=== PATIENT | female | born 1965 | race Caucasian/White ===

== ENCOUNTER 2016-04-18 12:44 | Emergency (ER) | payer OTHER ==
[~2016-04-18] VITALS: Ht 160 cm; Wt 75.9 kg
[~2016-04-18 12:44] MED LIST: AMITRIPTYLINE H10 M1 PO; AMITRIPTYLINE H25 M1 PO; AMOXICILLIN 50500 MG PO; ASPIRIN E.C. 8181 MG PO; BRILINTA90 MG PO; BUSPIRONE; CARDIZEM 30MG T30 MG PO; CARDIZEM CD 12120 MG PO; CARTIA XT120 MG PO; CEFTIN500 MG PO; CELEXA; CELEXA 20MG20 MG/TAB PO; CELEXA10 MG PO; CELEXA40 MG PO; CEPHALEXIN500 M1 PO; CLARITIN; CLEOCIN HCL300 MG PO; CLINDAMYCIN HC150 MG PO; CRESTOR 10MG10 MG PO; CYMBALTA 20MG20 MG PO; DOXYCYCLINE 10100 MG PO; DRISTAN NS; FLEXERIL; FLUOXETINE; HYDROCODONE/APAP; INDOCET; KLONOPIN 1MG1 MG PO; LORAZEPAM0.5 MG PO; LORTAB 5/500 501 TAB PO; MACROBID 1100 MG/CAP PO; MIDOL; NITROQUICK0.4 MG SL; NITROSTAT0.4 MG/TAB SL; NO HOME MEDICATIONS; NORCO 325 MG-51 TAB PO; NOT TAKING MEDS; OMNICEF 300MG300 MG PO; PERCOCET 325 MG1 TA2 PO; PERCOCET 650 MG1 TAB PO; PHENERGAN 25 TA25 MG PO; PHENTERMINE; PLAVIX 75MG TAB75 MG PO; PRILOSEC10 MG; PRINIVIL10 MG PO; PYRIDIUM200 M1 PO; SYMBICORT1 AE2 IH; SYNTHROID0.05 MG/TA PO; TRAZODONE150 MG PO; TYLENOL 500MG500 MG PO; VENTOLIN0.09 MG IH; WELLBUTRIN PO; ZESTRIL 20MG TA20 MG PO; ZITHROMAX Z PA250 MG PO; ZOCOR 40MG40 MG PO; ZOLOFT25 MG PO
[2016-04-18 12:47] VITALS: TEMP 97.5
[2016-04-18 13:38] LABS: BASO # 0.1 (0.0-0.2); BASO % 0.7 % (0.0-2.0); EOS # 0.4 (0.0-0.7); EOS % 4.1 % (0-4.0); GRAN % 58.5 % (42.2-75.2); HEMOGLOBIN 15.1 g/dl (12.5-16.0); LYMPH # 2.6 (1.2-3.4); LYMPH % 30.8 % (20.0-51.0); MEAN CELL VOLUME 92 fl (80.0-100.0); MEAN CORPUSCULAR HEMOGLOBIN 32 pg (27.0-31.0); MEAN CORPUSCULAR HGB CONC 34 g/dl (33.0-37.0); MEAN PLATELET VOLUME 10.4 fl (7.4-10.4); MONO # 0.5 (0.1-0.6); MONO % 5.7 % (1.7-9.3); PLATELET COUNT 296 K/mm3 (130-400); RED BLOOD COUNT 4.78 M/mm3 (4.10-5.30); WHITE BLOOD COUNT 8.6 K/mm3 (4.8-10.8)
[2016-04-18] MEDS ORDERED: ZESTRIL 5MG5 MG PO (13:39)
[2016-04-18 14:04] LABS: ALANINE AMINOTRANSFERASE 26 U/L (9-52); ALBUMIN 3.9 gm/dL (3.5-5.0); ALKALINE PHOSPHATASE 95 U/L (50-136); ANION GAP 10 mmol/L (7-16); BILIRUBIN,TOTAL 0.5 mg/dL (0.0-1.0); BLOOD UREA NITROGEN 3 mg/dL (7-17); CALCIUM 8.9 mg/dL (8.4-10.2); CARBON DIOXIDE 25 mmol/L (22-30); CHLORIDE 102 mmol/L (98-107); GLUCOSE 98 mg/dL (74-106); POTASSIUM 3.3 mmol/L (3.4-5.0); SODIUM 137 mmol/L (137-145); TOTAL PROTEIN 7.1 gm/dL (6.4-8.2)
[2016-04-18 14:10] LABS: C-REACTIVE PROTEIN < 0.5 mg/dL (0.0-0.9)
[2016-04-18 16:45] VITALS: BP 115/79; PULSE 83
== END 2016-04-18 16:51 | disposition home or self-care (01) ==
LOC: COL.ER 12:44
PROVIDERS: Emergency Medicine
DX: R51 Headache (principal); I25.10 Atherosclerotic heart disease of native coronary artery without angina pectoris; I10 Essential (primary) hypertension; F17.210 Nicotine dependence, cigarettes, uncomplicated
CPT/HCPCS: J1170; J2270; J2405; J7030; Q9967

== ENCOUNTER 2016-08-21 16:43 | Observation (INO) | payer OTHER ==
[~2016-08-21] VITALS: Ht 162.6 cm; Wt 79.7 kg
[~2016-08-21 16:43] MED LIST changes: +ZESTRIL 5MG5 MG PO
[2016-08-21 17:21] LABS: BASO % 0.4 % (0.0-2.0); EOS # 0.3 (0.0-0.7); GRAN # 5.9 (1.4-6.5); GRAN % 64.2 % (42.2-75.2); HEMATOCRIT 42.8 % (37.0-47.0); HEMOGLOBIN 14.3 g/dl (12.5-16.0); LYMPH # 2.5 (1.2-3.4); MEAN CELL VOLUME 92 fl (80.0-100.0); MEAN CORPUSCULAR HEMOGLOBIN 31 pg (27.0-31.0); MEAN CORPUSCULAR HGB CONC 33 g/dl (33.0-37.0); MEAN PLATELET VOLUME 10.5 fl (7.4-10.4); MONO # 0.5 (0.1-0.6); MONO % 5.2 % (1.7-9.3); PLATELET COUNT 275 K/mm3 (130-400); RED BLOOD COUNT 4.63 M/mm3 (4.10-5.30); REDCELL DISTRIBUTION WIDTH-CV 13.6 % (11.5-14.5); WHITE BLOOD COUNT 9.2 K/mm3 (4.8-10.8)
[2016-08-21 17:32] LABS: ADJUSTED CALCIUM 8.9 mg/dL (8.4-10.2); ALANINE AMINOTRANSFERASE 19 U/L (9-52); ALBUMIN 3.4 gm/dL (3.5-5.0); ALKALINE PHOSPHATASE 63 U/L (50-136); ANION GAP 9 mmol/L (7-16); BILIRUBIN,TOTAL 0.8 mg/dL (0.0-1.0); BLOOD UREA NITROGEN 10 mg/dL (7-17); CALCIUM 8.4 mg/dL (8.4-10.2); CARBON DIOXIDE 22 mmol/L (22-30); CHLORIDE 104 mmol/L (98-107); CREATININE, serum 0.72 mg/dL (0.52-1.25); GLUCOSE 120 mg/dL (74-106); LIPASE 45 U/L (23-300); MAGNESIUM 1.4 mg/dL (1.6-2.3); PHOSPHOROUS 2.9 mg/dL (2.5-4.5); POTASSIUM 3.1 mmol/L (3.4-5.0); SODIUM 135 mmol/L (137-145); TOTAL PROTEIN 6.2 gm/dL (6.4-8.2)
[2016-08-21 17:41] LABS: B-TYPE NATRIURETIC PEPTIDE 64 pg/mL (0-125)
[2016-08-21 18:24] LABS: TROPONIN-I < 0.012 ng/mL (0.000-0.034)
[2016-08-21 18:43] LABS: AMPHETAMINE URINE POSITIVE; BARBITURATES URINE NEGATIVE; BENZODIAZEPINES URINE NEGATIVE; BUPRENORPHINE URINE NEGATIVE; METHADONE URINE NEGATIVE; OPIATES URINE NEGATIVE; OXYCODONE URINE NEGATIVE; PHENCYCLIDINE URINE NEGATIVE; PROPOXYPHENE URINE NEGATIVE; THC CANNABINOIDS URINE NEGATIVE
[2016-08-21 20:08] VITALS: BP 102/60; PULSE 80; TEMP 97.6
[2016-08-21] MEDS ORDERED: CELEXA 20MG20 MG/TAB PO (22:14)
[2016-08-21] MEDS ORDERED: XANAX .25M0.25 MG/TA PO (22:14)
[2016-08-21] MEDS ORDERED: PERCOCET 325 MG1 TA2 PO (22:15)
[2016-08-21] MEDS ORDERED: ASPIRIN 81M81 MG/TA2 PO (22:15)
[2016-08-21] MEDS ORDERED: ASPIRIN 32325 MG/TAB PO (22:16)
[2016-08-21 23:31] VITALS: BP 126/77; PULSE 89; TEMP 98.1
[2016-08-22] VITALS (9 sets, daily range): BP systolic 116–144; BP diastolic 44–96; PULSE 59–100; TEMP 97.3–98.7
[2016-08-22 07:37] LABS: PROTHROMBIN TIME 10.7 SECONDS (9.7-12.8)
[2016-08-22 07:54] LABS: TROPONIN-I < 0.012 ng/mL (0.000-0.034)
[2016-08-22 08:01] LABS: ANION GAP 7 mmol/L (7-16); BLOOD UREA NITROGEN 11 mg/dL (7-17); CARBON DIOXIDE 22 mmol/L (22-30); CHLORIDE 107 mmol/L (98-107); CREATININE, serum 0.72 mg/dL (0.52-1.25); GLUCOSE 91 mg/dL (74-106); MAGNESIUM 1.6 mg/dL (1.6-2.3); POTASSIUM 3.9 mmol/L (3.4-5.0); SODIUM 136 mmol/L (137-145)
[2016-08-22] MEDS ORDERED: CELEXA 20MG20 MG/TAB PO (16:41)
[2016-08-22] MEDS ORDERED: PRAVACHOL 40MG40 MG PO (16:41)
== END 2016-08-22 17:42 | disposition home or self-care (01) ==
LOC: COL.ER 16:43 → MEDICAL 19:13
PROVIDERS: Emergency Medicine; Internal Medicine
DX: F15.10 Other stimulant abuse, uncomplicated (principal); R07.9 Chest pain, unspecified; M54.2 Cervicalgia; F41.9 Anxiety disorder, unspecified; Z91.14 Patient's other noncompliance with medication regimen; I25.10 Atherosclerotic heart disease of native coronary artery without angina pectoris; Z95.5 Presence of coronary angioplasty implant and graft; I67.1 Cerebral aneurysm, nonruptured; I10 Essential (primary) hypertension; F32.9 Major depressive disorder, single episode, unspecified; F17.210 Nicotine dependence, cigarettes, uncomplicated; E78.5 Hyperlipidemia, unspecified; E03.9 Hypothyroidism, unspecified; F31.9 Bipolar disorder, unspecified; G89.29 Other chronic pain
CPT/HCPCS: A9502; G0378; J1650; J2270; J2785; J7030

== ENCOUNTER 2016-11-24 13:51 | Emergency (ER) | payer OTHER ==
[~2016-11-24] VITALS: Ht 162.6 cm; Wt 79.4 kg
[~2016-11-24 13:51] MED LIST changes: +ASPIRIN 32325 MG/TAB PO; +ASPIRIN 81M81 MG/TA2 PO; +PRAVACHOL 40MG40 MG PO; +XANAX .25M0.25 MG/TA PO
[2016-11-24 13:58] VITALS: BP 135/74; PULSE 93; TEMP 98.9
[2016-11-24] MEDS ORDERED: BRILINTA90 MG PO (14:03)
[2016-11-24] MEDS ORDERED: NORCO 325 MG-51 TAB PO (16:02)
[2016-11-24] MEDS ORDERED: PEN-VEE K500 MG PO (16:02)
== END 2016-11-24 16:15 | disposition home or self-care (01) ==
LOC: COL.ER 13:51
DX: K08.89 Other specified disorders of teeth and supporting structures (principal); I10 Essential (primary) hypertension; I25.2 Old myocardial infarction; J45.909 Unspecified asthma, uncomplicated; F31.9 Bipolar disorder, unspecified; F17.210 Nicotine dependence, cigarettes, uncomplicated; Z79.82 Long term (current) use of aspirin

== ENCOUNTER 2017-04-18 18:46 | Emergency (ER) | payer SELFPAY ==
[~2017-04-18] VITALS: Ht 162.6 cm; Wt 79.1 kg
[~2017-04-18 18:46] MED LIST changes: +PEN-VEE K500 MG PO
[2017-04-18 18:52] VITALS: BP 156/83; TEMP 97.5
[2017-04-18] MEDS ORDERED: AMOXICILLIN 50500 MG PO (19:29)
[2017-04-18 20:11] VITALS: PULSE 78
== END 2017-04-18 20:12 | disposition home or self-care (01) ==
LOC: COL.ER 18:46
DX: K02.9 Dental caries, unspecified (principal); I10 Essential (primary) hypertension; G43.909 Migraine, unspecified, not intractable, without status migrainosus; J45.909 Unspecified asthma, uncomplicated; F31.9 Bipolar disorder, unspecified; F17.210 Nicotine dependence, cigarettes, uncomplicated; Z88.1 Allergy status to other antibiotic agents

== ENCOUNTER → 2017-04-23 | Emergency (ER) | payer SELFPAY ==
[~2017-04-23] VITALS: Ht 162.6 cm; Wt 81.4 kg
[2017-04-23 09:21] VITALS: BP 161/79; PULSE 94; TEMP 98.2
== END ==
LOC: COL.ER 09:18
DX: R69 Illness, unspecified (principal)

== ENCOUNTER 2017-05-08 18:21 | Emergency (ER) | payer SELFPAY ==
[~2017-05-08] VITALS: Ht 162.6 cm; Wt 81.4 kg
[2017-05-08 18:29] VITALS: TEMP 97.9
[2017-05-08 19:54] LABS: ALANINE AMINOTRANSFERASE 36 U/L (9-52); ALBUMIN 4.1 gm/dL (3.5-5.0); ALKALINE PHOSPHATASE 74 U/L (50-136); ANION GAP 12 mmol/L (7-16); AST,SGOT 23 U/L (15-37); BILIRUBIN,TOTAL 0.6 mg/dL (0.0-1.0); BLOOD UREA NITROGEN 10 mg/dL (7-17); CARBON DIOXIDE 23 mmol/L (22-30); CHLORIDE 107 mmol/L (98-107); CREATININE, serum 0.81 mg/dL (0.52-1.25); GLUCOSE 127 mg/dL (74-106); POTASSIUM 3.3 mmol/L (3.4-5.0); SODIUM 141 mmol/L (137-145)
[2017-05-08 19:55] LABS: ACETAMINOPHEN < 10 ug/mL (10-30); ALCOHOL(ethanol),MEDICAL < 10 mg/dL; SALICYLATE < 1.0 mg/dL
[2017-05-08 20:01] LABS: BASO # 0.1 (0.0-0.2); BASO % 0.5 % (0.0-2.0); EOS # 0.2 (0.0-0.7); EOS % 1.9 % (0-4.0); GRAN # 7.5 (1.4-6.5); GRAN % 69.3 % (42.2-75.2); HEMATOCRIT 40.9 % (37.0-47.0); LYMPH # 2.3 (1.2-3.4); LYMPH % 20.9 % (20.0-51.0); MEAN CELL VOLUME 92 fl (80.0-100.0); MEAN CORPUSCULAR HEMOGLOBIN 32 pg (27.0-31.0); MEAN CORPUSCULAR HGB CONC 34 g/dl (33.0-37.0); MEAN PLATELET VOLUME 10.8 fl (7.4-10.4); MONO # 0.8 (0.1-0.6); PLATELET COUNT 305 K/mm3 (130-400); RED BLOOD COUNT 4.44 M/mm3 (4.10-5.30); REDCELL DISTRIBUTION WIDTH-CV 14.6 % (11.5-14.5)
[2017-05-08 20:23] LABS: COLLECTION METHOD CLEAN CATCH
[2017-05-08 20:31] LABS: MUCOUS Present /lpf; PH 5 (5-8); SQUAMOUS EPITHELIAL 0-2 /hpf; URINE APPEARANCE Hazy; URINE BACTERIA None Seen /hpf; URINE BILIRUBIN Negative (NEGATIVE); URINE BLOOD 1+ (NEGATIVE); URINE COLOR Yellow; URINE GLUCOSE Negative (NEGATIVE); URINE KETONE Negative (NEGATIVE); URINE LEUKOCYTE ESTERASE Negative (NEGATIVE); URINE NITRATE Negative (NEGATIVE); URINE PROTEIN(semi-quant) 1+ (NEGATIVE); URINE UROBILINOGEN Negative (NEGATIVE)
[2017-05-08 20:38] LABS: TRICYCLIC ANTIDEPRESS URINE NEGATIVE
[2017-05-08 21:50] VITALS: BP 109/64
[2017-05-08 23:40] VITALS: PULSE 90
== END 2017-05-08 23:42 | disposition home or self-care (01) ==
LOC: COL.ER 18:21
PROVIDERS: Family Medicine
DX: F41.9 Anxiety disorder, unspecified (principal); F32.9 Major depressive disorder, single episode, unspecified; Z23 Encounter for immunization

== ENCOUNTER 2017-06-19 18:16 | Emergency (ER) | payer SELFPAY ==
[2017-06-19 18:21] VITALS: BP 126/84; TEMP 97.7
[2017-06-19 18:53] LABS: BASO # 0.1 (0.0-0.2); BASO % 0.6 % (0.0-2.0); EOS # 0.4 (0.0-0.7); GRAN # 5.9 (1.4-6.5); GRAN % 58.6 % (42.2-75.2); HEMATOCRIT 46.1 % (37.0-47.0); HEMOGLOBIN 15.6 g/dl (12.5-16.0); LYMPH # 2.9 (1.2-3.4); LYMPH % 28.7 % (20.0-51.0); MEAN CELL VOLUME 91 fl (80.0-100.0); MEAN CORPUSCULAR HEMOGLOBIN 31 pg (27.0-31.0); MEAN CORPUSCULAR HGB CONC 34 g/dl (33.0-37.0); MEAN PLATELET VOLUME 10.9 fl (7.4-10.4); MONO # 0.8 (0.1-0.6); MONO % 7.8 % (1.7-9.3); PLATELET COUNT 319 K/mm3 (130-400); RED BLOOD COUNT 5.08 M/mm3 (4.10-5.30); REDCELL DISTRIBUTION WIDTH-CV 13.7 % (11.5-14.5)
[2017-06-19] MEDS ORDERED: WELLBUTRIN SR150 M1 PO (18:57)
[2017-06-19] MEDS ORDERED: CYMBALTA 20MG20 MG PO (18:57)
[2017-06-19 19:06] LABS: BILIRUBIN,TOTAL 0.2 mg/dL (0.0-1.0); C-REACTIVE PROTEIN 0.6 mg/dL (0.0-0.9); CALCIUM 9.7 mg/dL (8.4-10.2); CREATININE, serum 0.88 mg/dL (0.52-1.25); POTASSIUM 4.2 mmol/L (3.4-5.0); TOTAL PROTEIN 7.2 gm/dL (6.4-8.2)
[2017-06-19 19:21] LABS: COLLECTION METHOD CLEAN CATCH
[2017-06-19 19:26] LABS: PH 5 (5-8); SQUAMOUS EPITHELIAL 0-2 /hpf; URINE APPEARANCE Clear; URINE BACTERIA None Seen /hpf; URINE BILIRUBIN Negative (NEGATIVE); URINE BLOOD Negative (NEGATIVE); URINE COLOR Yellow; URINE GLUCOSE Negative (NEGATIVE); URINE KETONE Negative (NEGATIVE); URINE LEUKOCYTE ESTERASE Negative (NEGATIVE); URINE NITRATE Negative (NEGATIVE); URINE PROTEIN(semi-quant) Negative (NEGATIVE); URINE RBC 0-2 /hpf; URINE UROBILINOGEN Negative (NEGATIVE)
[2017-06-19] MEDS ORDERED: LEVOXYL0.1 MG PO ×3 (19:26→20:07)
[2017-06-19] MEDS ORDERED: FLEXERIL 1010 MG/TAB PO (19:29)
[2017-06-19 19:34] LABS: THYROID STIMULATING HORMONE 2.39 uIU/mL (0.465-4.680)
[2017-06-19 19:37] LABS: TRICYCLIC ANTIDEPRESS URINE NEGATIVE
[2017-06-19 19:58] VITALS: PULSE 80
== END 2017-06-19 19:57 | disposition home or self-care (01) ==
LOC: COL.ER 18:16
PROVIDERS: Family Medicine
DX: G89.29 Other chronic pain (principal); M54.5 Low back pain; E03.9 Hypothyroidism, unspecified; I10 Essential (primary) hypertension; F32.9 Major depressive disorder, single episode, unspecified; Z86.79 Personal history of other diseases of the circulatory system; Z98.890 Other specified postprocedural states
CPT/HCPCS: J2405; J7030

== ENCOUNTER 2018-02-18 09:30 | Emergency (ER) | payer MEDICAID ==
[~2018-02-18] VITALS: Ht 162.6 cm; Wt 74.9 kg
[~2018-02-18 09:30] MED LIST changes: +FLEXERIL 1010 MG/TAB PO; +LEVOXYL0.1 MG PO; +WELLBUTRIN SR150 M1 PO
[2018-02-18 09:36] VITALS: BP 138/98; TEMP 96.7
[2018-02-18] MEDS ORDERED: FLEXERIL 1010 MG/TAB PO (10:56)
[2018-02-18] MEDS ORDERED: NORCO 325 MG-51 TAB PO (10:56)
[2018-02-18 11:03] VITALS: PULSE 90
== END 2018-02-18 11:03 | disposition home or self-care (01) ==
LOC: COL.ER 09:30
DX: M54.31 Sciatica, right side (principal); F17.210 Nicotine dependence, cigarettes, uncomplicated; F32.9 Major depressive disorder, single episode, unspecified
CPT/HCPCS: J1885; J2360

== ENCOUNTER 2018-07-26 13:21 | Emergency (ER) | payer MEDICAID ==
[~2018-07-26] VITALS: Ht 162.6 cm; Wt 76.8 kg
[2018-07-26 13:24] VITALS: TEMP 97.1
[2018-07-26 13:54] LABS: BASO # 0.1 (0.0-0.2); BASO % 0.7 % (0.0-2.0); EOS # 0.3 (0.0-0.7); EOS % 3.8 % (0-4.0); GRAN # 5.1 (1.4-6.5); GRAN % 59.3 % (42.2-75.2); HEMATOCRIT 47.6 % (37.0-47.0); LYMPH # 2.6 (1.2-3.4); LYMPH % 29.6 % (20.0-51.0); MEAN CELL VOLUME 95 fl (80.0-100.0); MEAN CORPUSCULAR HEMOGLOBIN 32 pg (27.0-31.0); MEAN CORPUSCULAR HGB CONC 34 g/dl (33.0-37.0); MEAN PLATELET VOLUME 10.8 fl (7.4-10.4); MONO # 0.5 (0.1-0.6); MONO % 6.1 % (1.7-9.3); PLATELET COUNT 289 K/mm3 (130-400); RED BLOOD COUNT 5.02 M/mm3 (4.10-5.30); REDCELL DISTRIBUTION WIDTH-CV 13.3 % (11.5-14.5)
[2018-07-26 14:02] LABS: ALANINE AMINOTRANSFERASE < 6 U/L (9-52); ALBUMIN 3.8 gm/dL (3.5-5.0); ALKALINE PHOSPHATASE 88 U/L (50-136); ANION GAP 12 mmol/L (7-16); AST,SGOT 36 U/L (15-37); BILIRUBIN,TOTAL 0.4 mg/dL (0.0-1.0); BLOOD UREA NITROGEN 13 mg/dL (7-17); CALCIUM 9.4 mg/dL (8.4-10.2); CARBON DIOXIDE 22 mmol/L (22-30); CHLORIDE 105 mmol/L (98-107); CREATININE, serum 0.72 (0.52-1.25); GLUCOSE 124 mg/dL (74-106); INR 0.9 (0.8-3.0); PROTHROMBIN TIME 10.1 SECONDS (9.7-12.8); SODIUM 139 mmol/L (137-145); TOTAL PROTEIN 7.3 gm/dL (6.4-8.2)
[2018-07-26 14:05] LABS: PARTIAL THROMBOPLASTIN TIME 30.4 SECONDS (26.0-37.0)
[2018-07-26 14:06] LABS: D-DIMER < 200.00 ng/mLDDu (200-230)
[2018-07-26 14:23] LABS: TROPONIN-I < 0.012 ng/mL (0.000-0.035)
[2018-07-26 15:25] VITALS: BP 120/75; PULSE 88
== END 2018-07-26 15:25 | disposition left against medical advice (07) ==
LOC: COL.ER 13:21
PROVIDERS: Family Medicine
DX: R07.89 Other chest pain (principal); I10 Essential (primary) hypertension; I25.10 Atherosclerotic heart disease of native coronary artery without angina pectoris; E78.5 Hyperlipidemia, unspecified; F32.9 Major depressive disorder, single episode, unspecified; F17.210 Nicotine dependence, cigarettes, uncomplicated

== ENCOUNTER 2018-10-05 17:36 | Emergency (ER) | payer SELFPAY ==
[~2018-10-05] VITALS: Ht 162.6 cm; Wt 76.4 kg
[2018-10-05 18:30] LABS: BASO # 0.1 (0.0-0.2); BASO % 0.5 % (0.0-2.0); EOS # 0.3 (0.0-0.7); EOS % 2.3 % (0-4.0); GRAN # 8.1 (1.4-6.5); GRAN % 76.2 % (42.2-75.2); HEMATOCRIT 42.5 % (37.0-47.0); HEMOGLOBIN 14.3 g/dl (12.5-16.0); LYMPH # 1.6 (1.2-3.4); LYMPH % 14.8 % (20.0-51.0); MEAN CELL VOLUME 95 fl (80.0-100.0); MEAN CORPUSCULAR HEMOGLOBIN 32 pg (27.0-31.0); MEAN CORPUSCULAR HGB CONC 34 g/dl (33.0-37.0); MEAN PLATELET VOLUME 10.7 fl (7.4-10.4); MONO # 0.6 (0.1-0.6); PLATELET COUNT 286 K/mm3 (130-400); RED BLOOD COUNT 4.49 M/mm3 (4.10-5.30); REDCELL DISTRIBUTION WIDTH-CV 13.7 % (11.5-14.5)
[2018-10-05 18:43] LABS: ALBUMIN 3.8 gm/dL (3.5-5.0); BILIRUBIN,TOTAL 0.3 mg/dL (0.0-1.0); CALCIUM 9.4 mg/dL (8.4-10.2); CREATININE, serum 0.98 (0.52-1.25); POTASSIUM 3.7 mmol/L (3.4-5.0); TOTAL PROTEIN 6.7 gm/dL (6.4-8.2)
[2018-10-05 20:37] VITALS: BP 147/82; PULSE 76; TEMP 98.2
== END 2018-10-05 20:37 | disposition home or self-care (01) ==
LOC: COL.ER 17:36
PROVIDERS: Emergency Medicine
DX: S71.112A Laceration without foreign body, left thigh, initial encounter (principal); I25.10 Atherosclerotic heart disease of native coronary artery without angina pectoris; F17.210 Nicotine dependence, cigarettes, uncomplicated; Z95.9 Presence of cardiac and vascular implant and graft, unspecified; W01.0XXA Fall on same level from slipping, tripping and stumbling without subsequent striking against object, initial encounter; Y92.009 Unspecified place in unspecified non-institutional (private) residence as the place of occurrence of the external cause
CPT/HCPCS: J1885; Q9967

== ENCOUNTER 2019-04-16 15:43 | Emergency (ER) | payer SELFPAY ==
[~2019-04-16] VITALS: Ht 162.6 cm; Wt 75.0 kg
[2019-04-16 15:54] VITALS: BP 116/94; TEMP 97
[2019-04-16 16:42] LABS: COLLECTION METHOD CLEAN CATCH
[2019-04-16 17:37] LABS: PH 7 (5-8); SQUAMOUS EPITHELIAL None Seen /hpf; URINE APPEARANCE Clear; URINE BACTERIA None Seen /hpf; URINE BILIRUBIN Negative (NEGATIVE); URINE BLOOD Negative (NEGATIVE); URINE COLOR Yellow; URINE GLUCOSE Negative (NEGATIVE); URINE KETONE Negative (NEGATIVE); URINE LEUKOCYTE ESTERASE Negative (NEGATIVE); URINE NITRATE Negative (NEGATIVE); URINE PROTEIN(semi-quant) Negative (NEGATIVE); URINE RBC 0-2 /hpf; URINE UROBILINOGEN Negative (NEGATIVE)
[2019-04-16 17:41] VITALS: PULSE 100
[2019-04-16] MEDS ORDERED: FLAGYL500 MG PO (17:52)
== END 2019-04-16 17:41 | disposition home or self-care (01) ==
LOC: COL.ER 15:43
PROVIDERS: Emergency Medicine
DX: N76.0 Acute vaginitis (principal); F32.9 Major depressive disorder, single episode, unspecified
CPT/HCPCS: J0696

== ENCOUNTER 2019-07-15 15:20 | Observation (INO) | payer OTHER ==
[~2019-07-15] VITALS: Ht 162.6 cm; Wt 79.3 kg
[~2019-07-15 15:20] MED LIST changes: +FLAGYL500 MG PO
[2019-07-15 15:41] LABS: BASO # 0.1 (0.0-0.2); BASO % 0.8 % (0.0-2.0); EOS # 0.3 (0.0-0.7); EOS % 2.8 % (0-4.0); GRAN # 5.5 (1.4-6.5); GRAN % 59.8 % (42.2-75.2); HEMATOCRIT 48.4 % (37.0-47.0); HEMOGLOBIN 16.1 g/dl (12.5-16.0); LYMPH # 2.7 (1.2-3.4); LYMPH % 28.7 % (20.0-51.0); MEAN CELL VOLUME 96 fl (80.0-100.0); MEAN CORPUSCULAR HEMOGLOBIN 32 pg (27.0-31.0); MEAN CORPUSCULAR HGB CONC 33 g/dl (33.0-37.0); MEAN PLATELET VOLUME 10.7 fl (7.4-10.4); MONO # 0.7 (0.1-0.6); MONO % 7.5 % (1.7-9.3); PLATELET COUNT 254 K/mm3 (130-400); RED BLOOD COUNT 5.07 M/mm3 (4.10-5.30); REDCELL DISTRIBUTION WIDTH-CV 13.6 % (11.5-14.5)
[2019-07-15 15:46] LABS: INR 0.9 (0.8-3.0); PROTHROMBIN TIME 9.9 SECONDS (9.7-12.8)
[2019-07-15 15:48] LABS: PARTIAL THROMBOPLASTIN TIME 34.4 SECONDS (26.0-37.0)
[2019-07-15 15:56] LABS: ALANINE AMINOTRANSFERASE 23 U/L (4-34); ALKALINE PHOSPHATASE 98 U/L (50-136); ANION GAP 6 mmol/L (7-16); AST,SGOT 29 U/L (15-37); BILIRUBIN,TOTAL 0.5 mg/dL (0.0-1.0); BLOOD UREA NITROGEN 14 mg/dL (7-17); CALCIUM 9.1 mg/dL (8.4-10.2); CARBON DIOXIDE 25 mmol/L (22-30); CHLORIDE 107 mmol/L (98-107); CREATININE, serum 0.68 (0.52-1.25); GLUCOSE 100 mg/dL (74-106); POTASSIUM 4.1 mmol/L (3.4-5.0); SODIUM 138 mmol/L (137-145); TOTAL PROTEIN 7.1 gm/dL (6.4-8.2)
[2019-07-15 16:14] LABS: TROPONIN-I < 0.012 ng/mL (0.000-0.035)
[2019-07-15 16:36] LABS: ACETAMINOPHEN < 10 ug/mL (10-30); SALICYLATE < 1.0 mg/dL
[2019-07-15 17:15] LABS: COLLECTION METHOD CLEAN CATCH
[2019-07-15 17:24] LABS: MUCOUS Present /lpf; PH 8 (5-8); SQUAMOUS EPITHELIAL 0-2 /hpf; URINE APPEARANCE Clear; URINE BACTERIA None Seen /hpf; URINE BILIRUBIN Negative (NEGATIVE); URINE BLOOD Negative (NEGATIVE); URINE COLOR Yellow; URINE GLUCOSE Negative (NEGATIVE); URINE KETONE Negative (NEGATIVE); URINE LEUKOCYTE ESTERASE 2+ (NEGATIVE); URINE NITRATE Negative (NEGATIVE); URINE PROTEIN(semi-quant) Negative (NEGATIVE); URINE RBC 0-2 /hpf; URINE UROBILINOGEN Negative (NEGATIVE)
[2019-07-15 17:55] LABS: TRICYCLIC ANTIDEPRESS URINE NEGATIVE
[2019-07-15 19:25] VITALS: BP 107/76; PULSE 96; TEMP 98.6
[2019-07-15 21:22] VITALS: BP 115/72; PULSE 81
[2019-07-15 21:58] VITALS: BP 126/97; PULSE 86
[2019-07-15 23:11] VITALS: BP 144/93; PULSE 84
[2019-07-16] VITALS (9 sets, daily range): BP systolic 119–145; BP diastolic 76–89; PULSE 71–93; TEMP 97.8–98.4
--- NOTE | 2019-07-16 05:21 | NUR ---
PATIENT HAS RESTED THROUGH THE NIGHT WITH NO ISSUES. AFTER COMPLAINING OF A HEADACHE AND THE DOCTOR BEING NOTIFIED OF PAST MEDICAL HISTORY. A CT SCAN WAS DONE WITH NO ABNORMAL FINDINGS AND THE HEPARIN WAS RESTARTED. PATIENT IS ALERT AND ORIENTATED IN THE ROOM AND INDEPENDENT. WILL REPORT OFF TO DAY SHIFT
[2019-07-16 06:36] LABS: CHOLESTEROL 239 mg/dL (120-200); CHOLESTEROL RISK RATIO 6.4; HDL CHOLESTEROL 37 mg/dL; LDL CHOLESTEROL 167 mg/dL; TRIGLYCERIDE 174 mg/dL
[2019-07-16 06:47] LABS: TROPONIN-I < 0.012 ng/mL (0.000-0.035)
--- NOTE | 2019-07-16 08:47 | NUR ---
Pt sleeping upon entry, easily awakened. No C/O pain at this time. gave morning medications with sip of water. shift assessments complete, Pt left floor for TINY scan.
--- NOTE | 2019-07-16 12:36 | NUR ---
Nurse Executive attended clinical rounds with the team. Hospitalist reviewed results from the stress test and patient verbalized frustration and anger with the results. Patient repeatedly stated "I know there is something wrong" and that it's "not all in my head". Patient raised her voice and stated that if Hospitalist says there is nothing wrong than "she's done" and can go home. Hospitalist attempted to discuss psych consult but patient kept stating that she can just go home and that "it won't be AMA". Following rounds, JAYESH met with patient to complete intake. ESA Crawford also stayed to talk with patient. Yvette offered patient CT scan and patient declined. Yvette inquired about psych consult as it was reported patient lost her mother recently. Patient became upset and indicated her mother dying was not relevant. Patient states if she's crazy then her kids "can collect a check" on her. After Yvette left, JAYESH continued with intake. Patient lives alone in [place]. Patient states she is not . Patient reports she has two children Becky (ph#[phone]) and Handy (ph#[phone]). Patient states they do not live nearby. Patient does not have a primary care provider at this time and does not have insurance coverage. Patient states that she has been fighting with disability for a long time and can't get anywhere. JAYESH offered to set up appointment with [facility] as they offer sliding fee scale for services. Patient declines and states that [facility] still wants money even though it's at a reduced cost. Patient reports she meets with a material control specialist at [facility] then states to JAYESH, "I think we are done here". JAYESH was unable to adress positive UDS as patient ended intake interview. Following intake, JAYESH contacted Ashlee Financial Counselor who will complete FAA with patient. SW to continue to follow as needed.
--- NOTE | 2019-07-16 15:53 | NUR ---
Journeyman Molder met with patient to assist her in signing releases so Ashlee, Financial Counselor can apply for Medicaid and complete a Financial Assistance Application for patient. Patient was agreeable to signing releases and stated she talked with Ashlee over the phone about it. Patient reports she may need help with a ride home if she leaves today. A short time later, patient approached nurses station and stated the hospital was lying about her meth use as she only did about $10 worth of meth last time she used. Patient walked out and left AMA.
--- NOTE | 2019-07-16 17:21 | NUR ---
Pt left AMA, reported IV removed before Pt left facility.
== END 2019-07-16 17:23 | disposition left against medical advice (07) ==
LOC: COL.ER 15:20 → MEDICAL 17:21
PROVIDERS: Emergency Medicine; Physician Assistant; ADMIT Hospitalist
DX: R07.9 Chest pain, unspecified (principal); I25.10 Atherosclerotic heart disease of native coronary artery without angina pectoris; I10 Essential (primary) hypertension; F17.210 Nicotine dependence, cigarettes, uncomplicated; E03.9 Hypothyroidism, unspecified; Z91.14 Patient's other noncompliance with medication regimen; C41.9 Malignant neoplasm of bone and articular cartilage, unspecified; A59.01 Trichomonal vulvovaginitis; F31.9 Bipolar disorder, unspecified; F15.90 Other stimulant use, unspecified, uncomplicated; F11.90 Opioid use, unspecified, uncomplicated; Z95.5 Presence of coronary angioplasty implant and graft; Z98.890 Other specified postprocedural states
CPT/HCPCS: A9500; G0378; J1644; J2270; J2785; J7030; Q9967

== ENCOUNTER 2019-08-31 13:05 | Emergency (ER) | payer SELFPAY ==
[~2019-08-31] VITALS: Ht 162.6 cm; Wt 73.2 kg
[2019-08-31 13:08] VITALS: BP 129/88; PULSE 82; TEMP 97.6
[2019-08-31] MEDS ORDERED: VOLTAREN GEL 1%1 TU TP (13:52)
[2019-08-31] MEDS ORDERED: CRUTCHES MC (13:53)
== END 2019-08-31 14:13 | disposition home or self-care (01) ==
LOC: COL.ER 13:05
DX: M25.561 Pain in right knee (principal); F17.210 Nicotine dependence, cigarettes, uncomplicated
CPT/HCPCS: L1846

== ENCOUNTER 2019-09-11 18:04 | Emergency (ER) | payer SELFPAY ==
[~2019-09-11] VITALS: Ht 162.6 cm; Wt 73.2 kg
[~2019-09-11 18:04] MED LIST changes: +CRUTCHES MC; +VOLTAREN GEL 1%1 TU TP
[2019-09-11 18:09] VITALS: BP 127/83; PULSE 85; TEMP 96.8
[2019-09-11 18:39] LABS: COLLECTION METHOD CLEAN CATCH
[2019-09-11 19:36] LABS: MUCOUS Present /lpf; PH 5 (5-8); URINE APPEARANCE Hazy; URINE BACTERIA Rare /hpf; URINE BILIRUBIN Negative (NEGATIVE); URINE BLOOD Negative (NEGATIVE); URINE COLOR Yellow; URINE GLUCOSE Negative (NEGATIVE); URINE KETONE Negative (NEGATIVE); URINE LEUKOCYTE ESTERASE Negative (NEGATIVE); URINE NITRATE Negative (NEGATIVE); URINE PROTEIN(semi-quant) Negative (NEGATIVE); URINE RBC 0-2 /hpf; URINE UROBILINOGEN Negative (NEGATIVE)
[2019-09-11 19:47] LABS: BASO # 0.1 (0.0-0.2); BASO % 0.6 % (0.0-2.0); EOS # 0.3 (0.0-0.7); EOS % 3.3 % (0-4.0); GRAN # 4.5 (1.4-6.5); GRAN % 57.3 % (42.2-75.2); LYMPH # 2.6 (1.2-3.4); LYMPH % 33.1 % (20.0-51.0); MEAN CELL VOLUME 96 fl (80.0-100.0); MEAN CORPUSCULAR HEMOGLOBIN 31 pg (27.0-31.0); MEAN CORPUSCULAR HGB CONC 33 g/dl (33.0-37.0); MEAN PLATELET VOLUME 10.6 fl (7.4-10.4); MONO # 0.4 (0.1-0.6); MONO % 5.4 % (1.7-9.3); PLATELET COUNT 307 K/mm3 (130-400); RED BLOOD COUNT 5.44 M/mm3 (4.10-5.30); REDCELL DISTRIBUTION WIDTH-CV 13.4 % (11.5-14.5)
[2019-09-11 20:05] LABS: ALANINE AMINOTRANSFERASE 14 U/L (4-34); ALBUMIN 4.3 gm/dL (3.5-5.0); ALKALINE PHOSPHATASE 95 U/L (50-136); ANION GAP 10 mmol/L (7-16); AST,SGOT 21 U/L (15-37); BILIRUBIN,TOTAL 0.4 mg/dL (0.0-1.0); BLOOD UREA NITROGEN 11 mg/dL (7-17); CALCIUM 9.7 mg/dL (8.4-10.2); CARBON DIOXIDE 25 mmol/L (22-30); CHLORIDE 101 mmol/L (98-107); CREATININE, serum 0.77 (0.52-1.25); GLUCOSE 144 mg/dL (74-106); LIPASE 42 U/L (23-300); POTASSIUM 4.1 mmol/L (3.4-5.0); SODIUM 136 mmol/L (137-145); TOTAL PROTEIN 7.9 gm/dL (6.4-8.2)
[2019-09-11 20:21] LABS: C-REACTIVE PROTEIN < 0.5 mg/dL (0.0-0.9)
== END 2019-09-11 21:53 | disposition home or self-care (01) ==
LOC: COL.ER 18:04
PROVIDERS: Emergency Medicine; Physician Assistant
DX: R10.11 Right upper quadrant pain (principal); R11.0 Nausea; R63.0 Anorexia; F17.210 Nicotine dependence, cigarettes, uncomplicated; Z88.1 Allergy status to other antibiotic agents; Z90.12 Acquired absence of left breast and nipple; Z90.13 Acquired absence of bilateral breasts and nipples; Z91.19 Patient's noncompliance with other medical treatment and regimen
CPT/HCPCS: J1885; J2405; J7030

== ENCOUNTER → 2020-01-22 | Outpatient (CLI) | payer OTHER | LOC: MC.RAD 14:15 | DX: N63.11 Unspecified lump in the right breast, upper outer quadrant (principal) ==

== ENCOUNTER → 2020-05-14 | Outpatient (CLI) | payer SELFPAY | LOC: COL.RAD 06:45 | DX: M25.461 Effusion, right knee (principal); M71.21 Synovial cyst of popliteal space [Baker], right knee; M17.11 Unilateral primary osteoarthritis, right knee ==

== ENCOUNTER 2020-07-02 09:56 | Emergency (ER) | payer SELFPAY ==
[~2020-07-02] VITALS: Ht 162.6 cm; Wt 81.8 kg
[2020-07-02 10:02] VITALS: TEMP 97.1
[2020-07-02 10:34] LABS: BASO # 0.1 (0.0-0.2); BASO % 0.5 % (0.0-2.0); EOS # 0.2 (0.0-0.7); EOS % 1.9 % (0-4.0); GRAN # 6.4 (1.4-6.5); HEMATOCRIT 49.3 % (37.0-47.0); HEMOGLOBIN 16.1 g/dl (12.5-16.0); LYMPH # 2.3 (1.2-3.4); LYMPH % 23.6 % (20.0-51.0); MEAN CELL VOLUME 96 fl (80.0-100.0); MEAN CORPUSCULAR HEMOGLOBIN 31 pg (27.0-31.0); MEAN CORPUSCULAR HGB CONC 33 g/dl (33.0-37.0); MEAN PLATELET VOLUME 10.7 fl (7.4-10.4); MONO # 0.6 (0.1-0.6); MONO % 6.5 % (1.7-9.3); PLATELET COUNT 302 K/mm3 (130-400); RED BLOOD COUNT 5.14 M/mm3 (4.10-5.30); REDCELL DISTRIBUTION WIDTH-CV 14.2 % (11.5-14.5)
[2020-07-02 10:37] LABS: PROTHROMBIN TIME 10.6 SECONDS (9.7-12.8)
[2020-07-02 10:40] LABS: ALANINE AMINOTRANSFERASE 25 U/L (4-34); ALBUMIN 4.1 gm/dL (3.5-5.0); ALKALINE PHOSPHATASE 74 U/L (50-136); ANION GAP 7 mmol/L (7-16); AST,SGOT 25 U/L (15-37); BILIRUBIN,TOTAL 0.9 mg/dL (0.0-1.0); BLOOD UREA NITROGEN 17 mg/dL (7-17); CARBON DIOXIDE 27 mmol/L (22-30); CHLORIDE 104 mmol/L (98-107); GLUCOSE 120 mg/dL (74-106); LIPASE 48 U/L (23-300); POTASSIUM 3.9 mmol/L (3.4-5.0); SODIUM 138 mmol/L (137-145); TOTAL PROTEIN 7.3 gm/dL (6.4-8.2)
[2020-07-02 10:41] LABS: D-DIMER < 200.00 ng/mLDDu (200-230)
[2020-07-02 10:54] LABS: TROPONIN-I < 0.012 ng/mL (0.000-0.035)
[2020-07-02 10:54] LABS: COLLECTION METHOD CLEAN CATCH
[2020-07-02 10:59] LABS: MUCOUS Present /lpf; PH 6 (5-8); SQUAMOUS EPITHELIAL 0-2 /hpf; URINE APPEARANCE Clear; URINE BACTERIA Rare /hpf; URINE BILIRUBIN Negative (NEGATIVE); URINE BLOOD Negative (NEGATIVE); URINE COLOR Yellow; URINE GLUCOSE Negative (NEGATIVE); URINE KETONE Negative (NEGATIVE); URINE LEUKOCYTE ESTERASE Negative (NEGATIVE); URINE NITRATE Negative (NEGATIVE); URINE PROTEIN(semi-quant) Negative (NEGATIVE); URINE RBC 0-2 /hpf; URINE UROBILINOGEN Negative (NEGATIVE); URINE WBC 0-2 /hpf
[2020-07-02 11:06] LABS: HIV 1/2 Antibodies Non-Reactive; HIV-1p24 Antigen Non-Reactive
[2020-07-02 13:03] VITALS: BP 118/70; PULSE 67
== END 2020-07-02 13:30 | disposition home or self-care (01) ==
LOC: COL.ER 09:56
PROVIDERS: Nurse Practitioner Primary Care
DX: R10.10 Upper abdominal pain, unspecified (principal); R51.9 Headache, unspecified; G89.29 Other chronic pain; I25.2 Old myocardial infarction; J45.909 Unspecified asthma, uncomplicated; F17.210 Nicotine dependence, cigarettes, uncomplicated; Z95.5 Presence of coronary angioplasty implant and graft; Z85.830 Personal history of malignant neoplasm of bone; Z88.1 Allergy status to other antibiotic agents
CPT/HCPCS: J1200; J1885; Q9967

== ENCOUNTER → 2021-03-31 | Outpatient (CLI) | payer SELFPAY ==
[~2021-03-31] MED LIST changes: +PRIL40 PO
== END ==
LOC: COL.RAD 09:14
DX: N93.9 Abnormal uterine and vaginal bleeding, unspecified (principal)

== ENCOUNTER 2021-04-05 13:03 | Emergency (ER) | payer SELFPAY ==
[~2021-04-05] VITALS: Ht 162.6 cm; Wt 83.2 kg
[~2021-04-05 13:03] MED LIST changes: -PRIL40 PO
[2021-04-05 13:14] VITALS: TEMP 97.5
[2021-04-05 13:34] LABS: COLLECTION METHOD CLEAN CATCH
[2021-04-05 13:39] LABS: BASO # 0.1 K/mm3 (0.0-0.2); BASO % 0.8 % (0.0-2.0); EOS # 0.2 K/mm3 (0.0-0.7); EOS % 2.2 % (0.0-4.0); GRAN # 4.9 K/mm3 (1.4-6.5); GRAN % 57.2 % (42.2-75.2); HEMATOCRIT 46.3 % (37.0-47.0); HEMOGLOBIN 15.8 g/dl (12.5-16.0); LYMPH # 2.8 K/mm3 (1.2-3.4); LYMPH % 33.3 % (20.0-51.0); MEAN CELL VOLUME 93 fl (80.0-100.0); MEAN CORPUSCULAR HEMOGLOBIN 32 pg (27-31); MEAN CORPUSCULAR HGB CONC 34 g/dl (33.0-37.0); MEAN PLATELET VOLUME 10.3 fl (7.4-10.4); MONO # 0.5 K/mm3 (0.1-0.6); MONO % 5.9 % (1.7-9.3); PLATELET COUNT 314 K/mm3 (130-400); RED BLOOD COUNT 4.98 M/mm3 (4.10-5.30); REDCELL DISTRIBUTION WIDTH-CV 13.3 % (11.5-14.5)
[2021-04-05 13:42] LABS: PH 8 (5-8); SQUAMOUS EPITHELIAL 0-2 /hpf (0-10); URINE APPEARANCE Clear (CLEAR/HAZY); URINE BACTERIA None Seen /hpf (NONE SEEN); URINE BILIRUBIN Negative (NEGATIVE); URINE BLOOD Negative (NEGATIVE); URINE COLOR Yellow (YELLOW); URINE GLUCOSE Negative (NEGATIVE); URINE KETONE Negative (NEGATIVE); URINE LEUKOCYTE ESTERASE Negative (NEGATIVE); URINE NITRATE Negative (NEGATIVE); URINE PROTEIN(semi-quant) Negative (NEGATIVE); URINE RBC 0-2 /hpf (0-2); URINE UROBILINOGEN Negative (NEGATIVE)
[2021-04-05 13:54] LABS: ALBUMIN 3.5 gm/dL (3.5-5.0); BILIRUBIN,TOTAL 0.3 mg/dL (0.2-1.2); CALCIUM 8.9 mg/dL (8.4-10.2); CREATININE, serum 0.83 mg/dL (0.57-1.11)
[2021-04-05] MEDS ORDERED: PRIL40 PO (15:37)
[2021-04-05 15:56] VITALS: BP 118/78; PULSE 85
[2021-04-05 17:17] LABS: TRICYCLIC ANTIDEPRESS URINE NEGATIVE
== END 2021-04-05 15:58 | disposition home or self-care (01) ==
LOC: COL.ER 13:03
PROVIDERS: Physician Assistant
DX: K29.70 Gastritis, unspecified, without bleeding (principal); J45.909 Unspecified asthma, uncomplicated; F17.210 Nicotine dependence, cigarettes, uncomplicated; Z90.49 Acquired absence of other specified parts of digestive tract
CPT/HCPCS: J1885; J2405; J7030; Q9967

== ENCOUNTER 2021-07-24 13:22 | Emergency (ER) | payer SELFPAY ==
[~2021-07-24] VITALS: Ht 162.6 cm; Wt 75.0 kg
[~2021-07-24 13:22] MED LIST changes: +PRIL40 PO
[2021-07-24 13:41] VITALS: TEMP 99.1
[2021-07-24 14:04] LABS: COLLECTION METHOD CLEAN CATCH
[2021-07-24 14:13] LABS: MUCOUS Present (NOT PRESENT); PH 5 (5-8); SQUAMOUS EPITHELIAL 0-2 /hpf (0-10); URINE APPEARANCE Hazy (CLEAR/HAZY); URINE BACTERIA None Seen /hpf (NONE SEEN); URINE BILIRUBIN Negative (NEGATIVE); URINE BLOOD 2+ (NEGATIVE); URINE COLOR Yellow (YELLOW); URINE GLUCOSE Negative (NEGATIVE); URINE KETONE Trace (NEGATIVE); URINE LEUKOCYTE ESTERASE Negative (NEGATIVE); URINE NITRATE Negative (NEGATIVE); URINE PROTEIN(semi-quant) Negative (NEGATIVE); URINE UROBILINOGEN Negative (NEGATIVE)
[2021-07-24 15:04] VITALS: BP 134/82; PULSE 90
== END 2021-07-24 15:04 | disposition home or self-care (01) ==
LOC: COL.ER 13:22
PROVIDERS: Physician Assistant
DX: R35.0 Frequency of micturition (principal); F17.210 Nicotine dependence, cigarettes, uncomplicated; Z28.310 Unvaccinated for COVID-19

== ENCOUNTER 2021-08-20 15:42 | Emergency (ER) | payer SELFPAY ==
[~2021-08-20] VITALS: Ht 162.6 cm; Wt 80.8 kg
[2021-08-20 15:47] VITALS: TEMP 98
[2021-08-20 16:22] LABS: BASO # 0.1 K/mm3 (0.0-0.2); BASO % 0.6 % (0.0-2.0); EOS # 0.2 K/mm3 (0.0-0.7); GRAN # 3.7 K/mm3 (1.4-6.5); GRAN % 47.3 % (42.2-75.2); HEMATOCRIT 44.3 % (37.0-47.0); HEMOGLOBIN 14.4 g/dl (12.5-16.0); LYMPH # 3.3 K/mm3 (1.2-3.4); LYMPH % 41.4 % (20.0-51.0); MEAN CELL VOLUME 96 fl (80.0-100.0); MEAN CORPUSCULAR HEMOGLOBIN 31 pg (27-31); MEAN CORPUSCULAR HGB CONC 33 g/dl (33.0-37.0); MEAN PLATELET VOLUME 10.6 fl (7.4-10.4); MONO # 0.6 K/mm3 (0.1-0.6); MONO % 7.4 % (1.7-9.3); PLATELET COUNT 310 K/mm3 (130-400); RED BLOOD COUNT 4.62 M/mm3 (4.10-5.30); REDCELL DISTRIBUTION WIDTH-CV 13.3 % (11.5-14.5)
[2021-08-20 16:40] LABS: ALBUMIN 3.4 gm/dL (3.5-5.0); BILIRUBIN,TOTAL 0.3 mg/dL (0.2-1.2); CALCIUM 9.4 mg/dL (8.4-10.2); CREATININE, serum 0.89 mg/dL (0.57-1.11); POTASSIUM 3.8 mmol/L (3.5-4.5); TOTAL PROTEIN 7.6 gm/dL (6.2-8.1)
[2021-08-20] MEDS ORDERED: PREDNISONE20 MG PO (17:57)
[2021-08-20] MEDS ORDERED: ATARAX 25MG25 MG/TAB PO (17:57)
[2021-08-20 18:14] VITALS: BP 142/94; PULSE 94
== END 2021-08-20 18:15 | disposition home or self-care (01) ==
LOC: COL.ER 15:42
PROVIDERS: Personal Emergency Response Attendant
DX: T78.40XA Allergy, unspecified, initial encounter (principal); F17.210 Nicotine dependence, cigarettes, uncomplicated; Z28.310 Unvaccinated for COVID-19
CPT/HCPCS: J1100; J1200; Q9967

== ENCOUNTER 2022-04-29 18:40 | Emergency (ER) | payer SELFPAY ==
[~2022-04-29] VITALS: Ht 162.6 cm; Wt 78.2 kg
[~2022-04-29 18:40] MED LIST changes: +ATARAX 25MG25 MG/TAB PO; +PREDNISONE20 MG PO
[2022-04-29 18:44] VITALS: TEMP 98.2
[2022-04-29 19:09] LABS: BASO # 0.1 K/mm3 (0.0-0.2); BASO % 0.9 % (0.0-2.0); EOS # 0.3 K/mm3 (0.0-0.7); EOS % 3.8 % (0.0-4.0); GRAN # 4.2 K/mm3 (1.4-6.5); GRAN % 52.2 % (42.2-75.2); HEMATOCRIT 48.1 % (37.0-47.0); HEMOGLOBIN 16.2 g/dl (12.5-16.0); LYMPH # 2.9 K/mm3 (1.2-3.4); LYMPH % 35.9 % (20.0-51.0); MEAN CELL VOLUME 95 fl (80.0-100.0); MEAN CORPUSCULAR HEMOGLOBIN 32 pg (27-31); MEAN CORPUSCULAR HGB CONC 34 g/dl (33.0-37.0); MEAN PLATELET VOLUME 10.9 fl (7.4-10.4); MONO # 0.5 K/mm3 (0.1-0.6); MONO % 6.8 % (1.7-9.3); PLATELET COUNT 275 K/mm3 (130-400); RED BLOOD COUNT 5.05 M/mm3 (4.10-5.30)
[2022-04-29 19:24] LABS: ALANINE AMINOTRANSFERASE 19 U/L (0-55); ALBUMIN 3.8 gm/dL (3.5-5.0); ALKALINE PHOSPHATASE 91 U/L (40-150); ANION GAP 11 mmol/L (7-16); AST,SGOT 17 U/L (5-34); BILIRUBIN,TOTAL 0.4 mg/dL (0.2-1.2); BLOOD UREA NITROGEN 16 mg/dL (10-20); CALCIUM 9.7 mg/dL (8.4-10.2); CARBON DIOXIDE 24 mmol/L (22-29); CHLORIDE 108 mmol/L (98-107); CREATININE, serum 1.06 mg/dL (0.57-1.11); GLUCOSE 98 mg/dL (70-99); POTASSIUM 3.5 mmol/L (3.5-4.5); SODIUM 143 mmol/L (136-145); TOTAL PROTEIN 7.1 gm/dL (6.2-8.1)
[2022-04-29 19:30] LABS: TROPONIN-I < 0.010 ng/mL (0.00-0.033)
[2022-04-29 20:22] VITALS: BP 135/117; PULSE 81
== END 2022-04-29 20:38 | disposition home or self-care (01) ==
LOC: COL.ER 18:40
PROVIDERS: Emergency Medicine
DX: M54.6 Pain in thoracic spine (principal); R07.9 Chest pain, unspecified; F17.200 Nicotine dependence, unspecified, uncomplicated; Z95.5 Presence of coronary angioplasty implant and graft; I25.2 Old myocardial infarction; Z28.310 Unvaccinated for COVID-19
CPT/HCPCS: J1885